=== PATIENT | female | born 1960 | race Caucasian/White ===

== ENCOUNTER → 2016-07-14 | Outpatient (CLI) | payer BC ==
--- NOTE | 2016-07-14 20:06 | Diagnostic Imaging Report ---
INDICATION: Screening mammogram. DATE: 07/14/2016 COMPARISON: 11/10/2012, 03/22/2014, 06/12/2015. The current study was also evaluated with a Computer Aided Detection (CAD) system. FINDINGS: The breasts are heterogeneously dense and stable in appearance with no suspicious microcalcifications or dominant masses. IMPRESSION: 1. Stable appearance of both breasts with no mammographic evidence for malignancy. Yearly screening recommended. ACR BI-RADS Category 1: Negative. Result letter will be mailed to the patient. Note: At least 10% of breast cancer is not imaged by mammography. Dictated by: Dictated on workstation # [id number]
== END ==
LOC: RAD 07:07
PROVIDERS: ATTEND Family Medicine
DX: Z12.31 Encounter for screening mammogram for malignant neoplasm of breast (principal)